=== PATIENT | male | born 1985 | race Caucasian/White ===

== ENCOUNTER → 2021-04-25 14:57 | Outpatient (BNVA) | payer OTHER, SELFPAY | PROVIDERS: Referring Provider Nurse Practitioner; Visit Provider Specialist | DX: M25.512 Pain in left shoulder (principal) | CPT/HCPCS: 73030 ==

== ENCOUNTER 2021-05-11 11:01 | Outpatient (CLI) | payer OTHER, SELFPAY ==
--- NOTE | 2021-05-11 11:45 | MR_ITS ---
WS: [id number] MRI LEFT SHOULDER NONCONTRAST TECHNIQUE: Sagittal T2, coronal T1, T2 and proton density imaging. Axial gradient PDE imaging. CLINICAL INFORMATION: M25.512 - Pain in left shoulder COMPARISON: Radiograph April 25, 2021 FINDINGS: Prominent diffuse edema AC joint with a small AC joint effusion. Edema in the distal clavicle with gerardo rrounding periarticular edema. Moderate downsloping acromion with narrowing of the subacromial space. Surrounding soft tissue edema about the AC joint. Impingement on the distal supraspinatus with sligh t subacromial spurring. Differential considerations include infectious/inflammatory synovitis or poss ibly contusion. Recommend correlation with history of injury. No AC joint widening. Normal supraspinatus. Normal infraspinatus. Normal teres minor and subscapularis. Rotator cuff is int act. Normal bone marrow signal in the glenoid and humerus. Slight cystic degenerative changes at the greater tuberosity. Intra-articular biceps tendon is normal. Normal biceps tendon in the bicipital groove. Normal biceps labral anchor. Glenoid labrum appears grossly normal. MR/MR shoulder LT wo con* [id number] IMPRESSION: 1. Diffuse edema involving the AC joint with edema in the distal clavicle. Sma ll AC joint effusion. Recommend correlation for infectious or inflammatory syno vitis. Some this may be due to posttraumatic contusion. No significant AC joint widening. 2. Normal rotator cuff. No acute rotator cuff tears. 3. Normal bone marrow signal in the humerus and glenoid. 4. Normal biceps tendon in the bicipital groove. Normal intra-articular biceps tendon.
== END 2021-05-11 11:02 | disposition home or self-care (01) ==
LOC: RADSHAW 11:04
PROVIDERS: PCP Nurse Practitioner; Visit Provider Specialist
DX: M25.512 Pain in left shoulder (principal); R60.0 Localized edema; M25.412 Effusion, left shoulder
CPT/HCPCS: 73221

== ENCOUNTER 2021-06-14 11:24 | Outpatient (RCR) | payer OTHER, SELFPAY | END 2021-06-24 23:59 | disposition home or self-care (01) | LOC: TPT 11:24 | PROVIDERS: PCP Nurse Practitioner; Referring Provider Nurse Practitioner; Visit Provider Nurse Practitioner | DX: S43.102A Unspecified dislocation of left acromioclavicular joint, initial encounter (principal); X58.XXXA Exposure to other specified factors, initial encounter | CPT/HCPCS: 97110; 97162 ==

== ENCOUNTER 2021-06-25 06:00 | Outpatient (RCR) | payer OTHER, SELFPAY | END 2021-07-25 23:59 | disposition home or self-care (01) | LOC: TPT 06:00 | PROVIDERS: PCP Nurse Practitioner; Referring Provider Nurse Practitioner; Visit Provider Nurse Practitioner | DX: S43.102D Unspecified dislocation of left acromioclavicular joint, subsequent encounter (principal); X58.XXXD Exposure to other specified factors, subsequent encounter | CPT/HCPCS: 97110; 97140 ==

== ENCOUNTER 2021-07-26 06:00 | Outpatient (RCR) | payer OTHER, SELFPAY | END 2021-08-22 23:59 | disposition home or self-care (01) | LOC: TPT 06:00 | PROVIDERS: PCP Nurse Practitioner; Referring Provider Nurse Practitioner; Visit Provider Nurse Practitioner | DX: S43.102D Unspecified dislocation of left acromioclavicular joint, subsequent encounter (principal); X58.XXXD Exposure to other specified factors, subsequent encounter | CPT/HCPCS: 97110; 97164 ==

== ENCOUNTER 2021-08-01 10:42 | Emergency (ER) | payer OTHER, SELFPAY ==
[2021-08-01 11:17] VITALS: BP 135/82; PULSE 84; RESP 16; TEMP 36.8; O2SAT 98; BMI 26.9
== END 2021-08-01 14:15 | disposition left against medical advice (07) ==
PROVIDERS: Emergency Provider Family Medicine; PCP Nurse Practitioner
DX: Z53.21 Procedure and treatment not carried out due to patient leaving prior to being seen by health care provider (principal)

== ENCOUNTER 2021-08-23 06:00 | Outpatient (RCR) | payer OTHER, SELFPAY | END 2021-09-22 23:59 | disposition home or self-care (01) | LOC: TPT 06:00 | PROVIDERS: PCP Nurse Practitioner; Referring Provider Nurse Practitioner; Visit Provider Nurse Practitioner | DX: S43.102D Unspecified dislocation of left acromioclavicular joint, subsequent encounter (principal); X58.XXXD Exposure to other specified factors, subsequent encounter | CPT/HCPCS: 97110; 97140 ==

== ENCOUNTER → 2021-09-16 09:11 | Outpatient (BNVA) | payer OTHER, SELFPAY | PROVIDERS: PCP Nurse Practitioner; Visit Provider Nurse Practitioner Family | DX: Z01.818 Encounter for other preprocedural examination (principal); Z80.0 Family history of malignant neoplasm of digestive organs; Z20.822 Contact with and (suspected) exposure to COVID-19 | CPT/HCPCS: 87635 ==

== ENCOUNTER 2021-09-19 05:20 | Day surgery (SDC) | payer OTHER, SELFPAY ==
[2021-09-16 08:01] VITALS: BMI 26.6
[2021-09-19 06:04] VITALS: BP 143/93; PULSE 108; RESP 18; TEMP 36.6; O2SAT 96
[2021-09-19] MEDS: sodium chloride 0.9% 1,000 ML 30 ML IV (06:14)
--- NOTE | 2021-09-19 06:49 | P.ANESASSM_ITS ---
Documented by User: Aubrey Talbot Jr, AUTOMATIC TRANSM[employer]ION MECH[employer]IC 09/19/21 06:50 Pre-Anesthetic Assessment Height/Weight: Height 1.68 m Weight 74.843 kg Temp Pulse Resp BP Pulse Ox 97.8 F 108 H 18 143/93 96 09/19/21 06:04 09/19/21 06:04 09/19/21 06:04 09/19/21 06:04 09/19/21 06:04 Preop Diagnosis: Screen FH Operation Date: 09/19/21 07:00 Proposed Procedures p Colonoscopy 17241(Not Applicable) - Gavino Peace MD Was Beta Patricia taken within 24 hours: N/A Was Clonidine taken within 24 hours: N/A Last intake: Intake Last Liquid Date 09/18/21 Last Liquid Time 22:00 Last Solid Date 09/17/21 Last Solid Time 00:00 Social No alcohol and No tobacco Exam alert, oriented x 3, clear to auscultation bilaterally and regular rate & rhythm Airway Submandibular: within normal limits Cervical ROM: within normal limits Mallampati: Class II Dentition: full History/ROS No significant history except as noted and No significant complaints Pulmonary None reported CV/HEM None reported None reported Hepatic None reported GI None reported Metabolic None reported Musc/skel None reported Neuropsych Anxiety Anesthetic Plan ASA status: 2 Anesthesia: Anesthesia Evaluation and MAC Risk of > 500 ml blood loss (7ml/kg in children): No Medications/Allergies Home Medications Medication Instructions Recorded Confirmed Last Taken Type atorvastatin 40 mg tablet 40 mg PO DAILY 10/26/20 09/19/21 09/17/21 History quetiapine 300 mg tablet (Seroquel) 300 mg PO DAILY 10/26/20 09/19/21 09/18/21 History tramadol 50 mg tablet 50 mg PO BID PRN 10/26/20 09/19/21 Unknown History cyclobenzaprine 10 mg tablet 10 mg PO BID PRN tab 08/29/21 09/19/21 Unknown History lorazepam 0.5 mg tablet 0.5 mg PO DAILY PRN 08/29/21 09/19/21 09/19/21 History tadalafil 5 mg tablet 5 mg PO DAILY PRN 08/29/21 09/19/21 09/05/21 History testosterone 1.62 % (20.25 mg/1.25 1 packet TRANSDERMAL DAILY 08/29/21 09/19/21 09/17/21 History gram) transdermal gel packet Allergies Allergy/AdvReac Type Severity Reaction Status Date / Time No Known Allergies Allergy Verified 09/16/21 07:56 Current Medications Generic Name Dose Route Start Last Admin Trade Name Jas PRN Reason Stop Dose Admin Sodium Chloride 1,000 mls @ 30 mls/hr 09/19/21 06:00 09/19/21 06:14 Sodium Chloride 0.9% IV 30 mls/hr .Q24H JJ Administration PFSH Anesthesia Medical History Chronic back pain Hyperlipidemia Surgical History No pertinent past surgical history Family History Other Cancer Social History Smoking and tobacco status: never smoked History of recent travel: Yes Data Anesthesia Cardiac Studies: No Data to Display
--- NOTE | 2021-09-19 07:10 | W.PM.OPSFHP ---
Same Day Surgery H&P Indication for Procedure/HPI DATE OF PROCEDURE: September 19, 2021 CHIEF COMPLAINT/INDICATIONFOR SURGICAL PROCEDURE: Family history of colon cancer PREOP DIAGNOSIS: Screen FH PLANNED PROCEDURE: Operation Date: 09/19/21 07:00 Proposed Procedures p Colonoscopy 08657(Not Applicable) - Gavino Peace MD Medications/Allergies* Home Medications Medication Instructions Recorded Confirmed Type atorvastatin 40 mg tablet 40 mg PO DAILY 10/26/20 09/19/21 History quetiapine 300 mg tablet (Seroquel) 300 mg PO DAILY 10/26/20 09/19/21 History tramadol 50 mg tablet 50 mg PO BID PRN 10/26/20 09/19/21 History cyclobenzaprine 10 mg tablet 10 mg PO BID PRN tab 08/29/21 09/19/21 History lorazepam 0.5 mg tablet 0.5 mg PO DAILY PRN 08/29/21 09/19/21 History tadalafil 5 mg tablet 5 mg PO DAILY PRN 08/29/21 09/19/21 History testosterone 1.62 % (20.25 mg/1.25 1 packet TRANSDERMAL DAILY 08/29/21 09/19/21 History gram) transdermal gel packet Allergies/Adverse Reactions Allergy/AdvReac Type Severity Reaction Status Date / Time No Known Allergies Allergy Verified 09/16/21 07:56 Current Medications: Generic Name Dose Route Start Last Admin Trade Name Freq PRN Reason Stop Dose Admin Sodium Chloride 1,000 mls @ 30 mls/hr 09/19/21 06:00 09/19/21 06:14 Sodium Chloride 0.9% IV 30 mls/hr .Q24H JJ Administration Pertinent History/Comorbid Conditions* Medical History (Updated 09/08/21 @ 09:59 by Gavino Peace MD) Chronic back pain Hyperlipidemia Surgical History (Updated 12/28/20 @ 09:42 by Beverly Luna DO) No pertinent past surgical history Family History (Updated 12/28/20 @ 09:26 by Nicole Spaulding LPN) Cancer Social History Smoking and tobacco status: never smoked History of recent travel: Yes Pertinent Exam Findings alert, oriented x 3, clear to auscultation bilaterally, regular rate & rhythm, operative site marked and procedure specific exam findings Recommendations Surgery/Procedure today Coding Level 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
[2021-09-19 07:22] VITALS: BP 135/87; PULSE 89; RESP 18; TEMP 36.4; O2SAT 96
[2021-09-19 07:35] VITALS: BP 149/95; PULSE 75; RESP 18; TEMP 36.4; O2SAT 94
--- NOTE | 2021-09-19 13:47 | ANE.PACU2 ---
Inpatient post-anesthesia follow up: Airway intact: Yes Vital signs: Temperature 97.6 F Pulse Rate 75 Respiratory Rate 18 Blood Pressure 149/95 Pulse Oximetry 94 Oxygen Delivery Me thod Room Air Oxygen Flow Rate Fraction of Inspir ed Oxygen Hydration adequate: Yes Nausea and vomiting: No Pain level: 1 Mental status: Baseline
== END 2021-09-19 07:48 | disposition home or self-care (01) ==
PROVIDERS: PCP Nurse Practitioner; Visit Provider Internal Medicine
PROC: 0DJD8ZZ Inspection of Lower Intestinal Tract, Via Natural or Artificial Opening Endoscopic (ICD-10-PCS; CPT 45378; principal; 2021-09-19 07:00)
DX: Z12.11 Encounter for screening for malignant neoplasm of colon (principal); Z80.0 Family history of malignant neoplasm of digestive organs; E78.5 Hyperlipidemia, unspecified
CPT/HCPCS: 45378; J2704; J7030

== ENCOUNTER 2022-10-02 06:00 | Outpatient (RCR) | payer OTHER, SELFPAY | END 2022-10-22 23:59 | disposition home or self-care (01) | LOC: TPT 06:00 | PROVIDERS: Visit Provider Nurse Practitioner | DX: M25.521 Pain in right elbow (principal) | CPT/HCPCS: 97162 ==

== ENCOUNTER 2022-10-23 06:00 | Outpatient (RCR) | payer OTHER, SELFPAY | END 2022-11-22 23:59 | disposition home or self-care (01) | LOC: TPT 06:00 | PROVIDERS: Visit Provider Nurse Practitioner | DX: M25.521 Pain in right elbow (principal) | CPT/HCPCS: 97110; 97140 ==

== ENCOUNTER → 2022-11-08 08:16 | Outpatient (BNVA) | payer OTHER, SELFPAY | PROVIDERS: Visit Provider Podiatrist Foot & Ankle Surgery | DX: M79.671 Pain in right foot (principal) | CPT/HCPCS: 73630; 99203 ==

== ENCOUNTER 2022-12-01 23:05 | Outpatient (RCR) | payer OTHER, SELFPAY | END 2022-12-22 23:59 | disposition home or self-care (01) | LOC: TPT 23:05 | PROVIDERS: Visit Provider Nurse Practitioner | DX: M25.521 Pain in right elbow (principal) | CPT/HCPCS: 97110; 97140 ==

== ENCOUNTER 2022-12-23 06:00 | Outpatient (RCR) | payer OTHER, SELFPAY | END 2023-01-17 23:59 | disposition home or self-care (01) | LOC: TPT 06:00 | PROVIDERS: Visit Provider Nurse Practitioner | DX: M25.521 Pain in right elbow (principal) | CPT/HCPCS: 97110; 97140 ==